=== PATIENT | female | born 1950 | race Asian ===

== ENCOUNTER → 2018-07-24 15:22 | Outpatient (CLI) | payer MEDICARE, SELFPAY ==
--- NOTE | 2018-07-24 15:26 | DI.MG.S_ITS ---
BILATERAL DIGITAL SCREENING MAMMOGRAM 3D/2D WITH CAD: 07/24/2018 CLINICAL: Routine screening. Comparison is made to exams dated: 05/02/2017 mammogram, 01/20/2015 mammogram, and 02/12/2013 mammogram - [facility]. The tissue of both breasts is heterogeneously dense. This may lower the sensitivity of mammography. Current study was also evaluated with a Computer Aided Detection (CAD) system. There is a biopsy clip in the left breast. No significant masses, calcifications, or other findings are seen in either breast. There has been no significant interval change. IMPRESSION: NEGATIVE There is no mammographic evidence of malignancy. A 1 year screening mammogram is recommended. This exam was interpreted at Station ID: [id number]. NOTE: For mammograms, a report in lay terms will be sent to the patient. Approximately 15% of breast malignancies will not be visualized mammographically. In the management of a palpable breast mass, a negative mammogram must not discourage biopsy of a clinically suspicious lesion. Electronically Signed By: Evelio stubbs/demetrio:07/25/2018 09:40:58 letter sent: Normal Exam ACR BI-RADS Category 1: Negative 3341F
== END ==
PROVIDERS: PCP Family Medicine; Visit Provider Family Medicine
DX: Z12.31 Encounter for screening mammogram for malignant neoplasm of breast (principal)
CPT/HCPCS: 77063; 77067

== ENCOUNTER → 2019-04-10 09:48 | Outpatient (CLI) | payer MEDICARE, SELFPAY | PROVIDERS: Visit Provider Internal Medicine | DX: M81.0 Age-related osteoporosis without current pathological fracture (principal); Z78.0 Asymptomatic menopausal state; Z82.62 Family history of osteoporosis | CPT/HCPCS: 77080 ==

== ENCOUNTER → 2019-09-18 14:07 | Outpatient (CLI) | payer MEDICARE, SELFPAY ==
--- NOTE | 2019-09-18 | DI.MG.S_ITS ---
BILATERAL DIGITAL SCREENING MAMMOGRAM 3D/2D WITH CAD: 09/18/2019 CLINICAL: Routine screening. Comparison is made to exams dated: 07/24/2018 mammogram, 05/02/2017 mammogram, and 01/20/2015 mammogram - [facility]. The tissue of both breasts is heterogeneously dense. This may lower the sensitivity of mammography. Current study was also evaluated with a Computer Aided Detection (CAD) system. There is a biopsy clip in the left breast. No significant masses, calcifications, or other findings are seen in either breast. There has been no significant interval change. IMPRESSION: NEGATIVE There is no mammographic evidence of malignancy. A 1 year screening mammogram is recommended. This exam was interpreted at Station ID: [id number]. NOTE: For mammograms, a report in lay terms will be sent to the patient. Approximately 15% of breast malignancies will not be visualized mammographically. In the management of a palpable breast mass, a negative mammogram must not discourage biopsy of a clinically suspicious lesion. Electronically Signed By: Yuliya carlos/demetrio:09/18/2019 14:54:47 letter sent: Normal Exam ACR BI-RADS Category 1: Negative 3341F
== END ==
PROVIDERS: PCP Internal Medicine; Visit Provider Internal Medicine
DX: Z12.31 Encounter for screening mammogram for malignant neoplasm of breast (principal)
CPT/HCPCS: 77063; 77067

== ENCOUNTER → 2020-01-21 08:11 | Outpatient (CLI) | payer MEDICARE, SELFPAY ==
--- NOTE | 2020-01-21 | DI.RAD.S_ITS ---
PROCEDURE: FL UPPER GI W AIR INDICATIONS: Dysphagia, unspecified COMPARISON: None. FINDINGS: KUB: Preprocedural automobile service advisor film demonstrates a normal bowel gas pattern. No suspicious abdominal calcifications. Visualized solid organ contours appear normal. Bony structures appear unremarkable. Esophagus: Esophageal mucosa is normal on air-contrast views. Slight esophageal dysmotility. There is delayed esophageal clearance. Stomach: The stomach is normally distensible, with normal rugal fold thickness. No mucosal masses or ulcers. Pylorus and duodenal bulb appear normal in morphology. Duodenal folds are normal in thickness as well. IMPRESSION: Mild esophageal dysmotility Dictated by: Holden Kingsley M.D. on 01/21/2020 at 11:50 Approved by: Holden Kingsley M.D. on 01/21/2020 at 11:52
== END ==
PROVIDERS: PCP Internal Medicine; Referring Provider Family Medicine; Visit Provider Family Medicine
DX: R13.10 Dysphagia, unspecified (principal); K22.4 Dyskinesia of esophagus
CPT/HCPCS: 74246

== ENCOUNTER 2020-03-28 04:51 | Emergency (ER) | payer MEDICARE, SELFPAY ==
--- NOTE | 2020-03-28 04:58 | ED.HEATRA ---
HPI - Head Injury General Chief complaint: Headache Stated complaint: Headache and vomiting woke her up Time Seen by Provider: 03/28/20 04:57 Source: patient Mode of arrival: Ambulatory Limitations: no limitations History of Present Illness HPI Narrative: 69-year-old female nonsmoker and otherwise healthy presents with family in the chief complaint of severe headache that started a few hours ago and woke her from sleep. Any motion and bright lights as well as loud noises make her symptoms worse. She has nausea and has been vomiting. She denies any chest pain or shortness of breath. She denies any abdominal pain. She has no numbness, tingling weakness. She denies fever chills and has had no recent trauma or injuries. She denies any history of hypertension. Daughter states that she checked blood pressure earlier and it was over 200, this is atypical for her. She denies any dietary or medication change nor any new supplements or other changes. She went to bed feeling largely okay but was a bit tired MD Complaint: head pain Onset (ago): hour(s) Related Data Home Medications Medication Instructions Recorded Confirmed CA PANTOTHENATE/FOLIC ACID/VIT 1 tab PO Q DAY #0 12/20/11 (MULTIVITAMIN) Calcium Carbonate/Vitamin D 1 cap PO Q DAY #0 12/20/11 (#CALCIUM) VITAMIN B COMPLEX 1 cap PO Q DAY #0 07/26/12 Previous Rx's Medication Instructions Recorded doxycycline hyclate 100 mg PO Q12H #20 cap 02/03/17 hydrocodone-acetaminophen 0 tab PO Q6HP PRN #15 tab 02/03/17 metronidazole [Flagyl] 500 mg PO Q6H 10 Days #0 tab 02/03/17 ondansetron [Zofran ODT] 4 mg SUBLINGUAL Q6HP PRN #20 odt 02/03/17 Allergies Allergy/AdvReac Type Severity Reaction Status Date / Time cephalexin [CEPHALEXIN] Allergy Intermediate hives Verified 03/28/20 05:50 gal Allergy Intermediate HIVES Verified 03/28/20 05:50 Sulfa (Sulfonamide Allergy Unknown Verified 03/28/20 05:50 Antibiotics) SHRIMP Allergy Intermediate HIVES Uncoded 03/28/20 05:50 Review of Systems Constitutional Constitutional: Denies chills, Denies fatigue, Denies fever(s), Denies frequent falls, Reports headache(s), Denies lethargy and Denies weakness Eyes Eyes: Denies change in vision, Denies eye discharge, Denies irritation and Denies loss of vision ENT Ears, Nose, Mouth, and Throat: Denies change in voice, Denies dizziness, Reports headache(s), Denies neck pain, Denies sore throat and Denies throat swelling Cardiovascular Cardiovascular: Denies chest pain, Denies irregular heart rhythm, Denies lightheadedness, Denies palpitations, Denies dyspnea, Denies dyspnea on exertion and Denies orthopnea Respiratory Respiratory: Denies cough, Denies dyspnea, Denies dyspnea on exertion and Denies wheezing Gastrointestinal Gastrointestinal: Denies abdominal pain, Denies change in bowel habits, Denies diarrhea, Reports nausea and Reports vomiting Genitourinary Genitourinary: Denies hematuria, Denies flank pain, Denies urinary incontinence and Denies urinary urgency Musculoskeletal Musculoskeletal: Denies back pain, Denies muscle weakness, Denies neck pain, Denies numbness and Denies tingling Integumentary/Breasts Skin/Breast: Denies pruritus, Denies erythema, Denies rash and Denies wounds Neurologic Neurologic: Denies behavioral changes, Denies confusion, Denies dizziness, Denies frequent falls, Reports headache(s), Denies loss of vision, Denies numbness, Denies tingling and Denies weakness Psychiatric Psychiatric: Denies anxiety, Denies behavioral changes, Denies confusion, Denies depression, Denies homicidal ideation and Denies suicidal ideation Endocrine Endocrine: Denies fatigue, Denies flushing and Denies palpitations Hematologic/Lymphatic Hematologic/Lymphatic: Denies easy bruising Allergic/Immunologic Allergic/Immunologic: Denies urticaria, Denies throat swelling and Denies wheezing Patient History Family History Brother Diabetes mellitus Heart disease Hypertension High cholesterol Brother Age: 64 Obese Diabetes mellitus Hypertension High cholesterol Mental health problem Child Age: 40 Obese Gout Child Age: 35 IBS (irritable bowel syndrome) Father Cancer Grandmother Diabetes mellitus Eczema Grandmother Osteoporosis Social History Smoking Status: Former smoker Exam Narrative Exam Narrative: GENERAL: [69] year old patient appears younger than stated age. Well-nourished, well-developed patient, in moderate distress, holding an emesis bag HEAD: Atraumatic. Normocephalic. EYES: Pupils equal round and reactive. Extraocular motions intact. No scleral icterus. No injection or drainage. ENT: Nose without bleeding, purulent drainage. Throat without erythema, tonsillar hypertrophy or exudate. Airway patent. NECK: Trachea midline. Non tender CARDIOVASCULAR: Regular rate and rhythm without murmurs, gallops, or rubs. RESPIRATORY: Clear to auscultation. Breath sounds equal bilaterally. No wheezes, rales, or rhonchi. GASTROINTESTINAL: Abdomen soft, non-tender, nondistended. EXTREMITIES: No edema or joint tenderness. BACK: Nontender without deformity or crepitance. No flank tenderness. NEURO: AOx3. SKIN: No rash or erythema of visible areas Initial Vital Signs Initial Vital Signs: Vital Signs Temperature 97.7 F 03/28/20 05:15 Pulse Rate 62 03/28/20 05:15 Respiratory Rate 18 03/28/20 05:15 Blood Pressure 227/107 H 03/28/20 05:15 Pulse Oximetry 100 03/28/20 05:15 Course Orders Ordered: ED Orders 03/28/20 05:05 CT head/brain wo con Stat EKG-12 Lead Stat 03/28/20 05:22 Complete Blood Count AUTO DIFF Stat Comprehensive Metabolic Panel Stat Lipase Stat Troponin & CK Cardiac Panel Stat Sodium Chloride (Normal Saline 0.9%) 1,000 mls @ 150 mls/hr IV CONT LEON Last Admin: 03/28/20 05:28 Dose: 150 mls/hr Documented by: JULIETTE Discontinued Medications Labetalol HCl (Trandate) 10 mg IV NOW ONE Stop: 03/28/20 05:10 Last Admin: 03/28/20 05:29 Dose: 10 mg Documented by: JULIETTE Ondansetron HCl (Zofran) 4 mg IV NOW ONE Stop: 03/28/20 05:06 Last Admin: 03/28/20 05:28 Dose: 4 mg Documented by: JULIETTE Reevaluation(s) Reevaluation #1: BP down to the 150s and patient asymptomatic. Call to Dr. Marti (external relations manager for [facility]) we share the opinion that is most appropriate for patient to follow up, possibly as soon later today with her PCP to developed an ongoing plan Vital Signs Vital signs: Vital Signs - 8 hr 03/28/20 05:15 03/28/20 05:49 03/28/20 05:53 Temperature 97.7 F Pulse Rate 62 60 69 Respiratory Rate 18 18 18 Blood Pressure 227/107 H Blood Pressure [Left Arm] 186/92 H 163/85 H Pulse Oximetry 100 99 99 03/28/20 06:21 Temperature Pulse Rate 64 Respiratory Rate 18 Blood Pressure Blood Pressure [Left Arm] 157/86 H Pulse Oximetry 99 MDM - Head Injury Lab Data Result diagrams: 03/28/20 05:22 03/28/20 05:22 Labs: Lab Results 03/28/20 03/28/20 Range/Units 05:22 05:22 WBC 5.5 (4.5-11.0) X10^3/uL RBC 4.32 (4.0-5.2) X10^6/uL Hgb 13.7 (12.0-16.0) g/dL Hct 39.8 (36-46) % MCV 92.1 (80-100) fL MCH 31.8 (26-34) PG MCHC 34.5 (30-36) % RDW 13.5 (11.6-14.8) % Plt Count 208 (150-400) X10^3/uL Neut % (Auto) 66.2 (50-75) % Lymph % (Auto) 24.2 L (25-40) % [place] % (Auto) 7.1 (3-14) % Eos % (Auto) 2.0 (2-4) % Baso % (Auto) 0.5 (0-2) % Neut # (Auto) 3600 (1786-9483) /uL Lymph # (Auto) 1300 (1025-8718) /uL [place] # (Auto) 400 (0-900) /uL Eos # (Auto) 100 (0-450) /uL Baso # (Auto) 0 (0-100) /uL Sodium 138 (137-145) mmol/L Potassium 3.4 (3.4-5.1) mmol/L Chloride 103 (98-107) mmol/L Carbon Dioxide 26 (22-32) mmol/L BUN 26 H (7-17) mg/dL Creatinine 0.54 (0.52-1.04) mg/dL Estimated GFR > 60.0 (>60) mL/min BUN/Creatinine Ratio 48.1 H (6-22) Glucose 131 H (80-110) mg/dL Calcium 9.8 (8.4-10.2) mg/dL Total Bilirubin 0.5 (0.2-1.3) mg/dL AST 38 H (14-36) IU/L ALT 36 H (<35) IU/L Alkaline Phosphatase 141 H (38-126) U/L Total Creatine Kinase 136 H (30-135) U/L CK-MB (CK-2) 3.14 H (<2.37) ng/mL CK-MB (CK-2) Rel Index 2.3 (1.5-5.0) % Troponin I < 0.012 (0.01-0.034) ng/mL Total Protein 8.1 (6.3-8.2) g/dL Albumin 4.9 (3.5-5.0) g/dL Globulin 3.2 (1.7-4.1) g/dL Albumin/Globulin Ratio 1.5 (1.0-2.8) Lipase 170 (23-300) U/L Discharge Plan Departure Patient Disposition: Home Clinical Impression: Hypertension Qualifiers: Hypertension type: essential hypertension Qualified Code(s): I10 - Essential (primary) hypertension Headache Qualifiers: Headache type: unspecified Headache chronicity pattern: acute headache Intractability: not intractable Qualified Code(s): R51 - Headache Instructions: Essential Hypertension, DI for Headache Activity Restrictions/Additional Instructions: *You have been diagnosed with [headache secondary to high blood pressure] *What to do: *Follow up with your primary care provider in 2-3 days, call for an appointment in a few hours when they open. Let them know you were seen in the Emergency Department and that we ask that you be seen in follow up *Return to ER if you should have any new, worsening or concerning symptoms, such as [ ] Prescriptions: No Action CA PANTOTHENATE/FOLIC ACID/VIT (MULTIVITAMIN) 1 tab PO Q DAY Qty: 0 RF: 0 Calcium Carbonate/Vitamin D (#CALCIUM) 1 cap PO Q DAY Qty: 0 RF: 0 VITAMIN B COMPLEX 1 cap PO Q DAY Qty: 0 RF: 0 doxycycline hyclate 100 MG capsule 100 mg PO Q12H Qty: 20 RF: 0 hydrocodone-acetaminophen 5 MG/325 MG tablet 0 tab PO Q6HP PRNQty: 15 RF: 0 metronidazole [Flagyl] 500 MG tablet 500 mg PO Q6H 10 Days Qty: 0 RF: 0 ondansetron [Zofran ODT] 4 MG tablet,disintegrating 4 mg Sublingual Q6HP PRNQty: 20 RF: 0 Referrals: Trudi Paulino ARNP [Primary Care Provider] -
--- NOTE | 2020-03-28 05:05 | DI.CT.S_ITS ---
PROCEDURE: CT HEAD/BRAIN WO CON INDICATIONS: worst headache of life, vomiting TECHNIQUE: Noncontrast 4.5 mm thick angled axial sections acquired from the foramen magnum to the vertex, with coronal and sagittal reformats. For radiation dose reduction, the following was used: automated exposure control, adjustment of mA and/or kV according to patient size. COMPARISON: None. FINDINGS: Image quality: Excellent. CSF spaces: Basal cisterns are patent. No extra-axial fluid collections. The ventricles are symmetric in size and shape. Brain: No intracranial bleeds or masses. There is cerebral volume loss for age, with resultant ventricular and sulcal prominence. There are periventricular and deep white matter chronic small vessel ischemic changes. There is intracranial internal carotid artery and vertebral artery atherosclerosis. Skull and face: Calvarium and visualized facial bones appear intact, without suspicious lesions. Sinuses: Visualized sinuses and mastoids are clear. IMPRESSION: No acute intracranial disease process. Dictated by: Shabnam Love MD, PhD on 03/28/2020 at 7:56 Approved by: Shabnam Love MD, PhD on 03/28/2020 at 7:59
[2020-03-28 05:15] VITALS: BP 227/107; PULSE 62; RESP 18; TEMP 36.5; O2SAT 100
[2020-03-28] MEDS: ONDANSETRON 4 MG/2 ML INJ IV (05:28)
[2020-03-28] MEDS: SODIUM CHLORIDE 0.9% 1,000 ML 150 ML IV (05:28)
[2020-03-28] MEDS: LABETALOL 20 MG/4 ML SYRINGE 10 MG IV (05:29)
[2020-03-28 05:33] LABS: Add Manual Diff / Slide Review NO; Basophils Absolute Auto 0 /uL (0-100); Basophils Percent Auto 0.5 % (0-2); Eosinophils Absolute Auto 100 /uL (0-450); Hematocrit 39.8 % (36-46); Hemoglobin 13.7 g/dL (12.0-16.0); Lymphocytes Absolute Auto 1300 /uL (1100-4500); Lymphocytes Percent Auto 24.2 % (25-40); Mean Corpuscular HGB Conc 34.5 % (30-36); Mean Corpuscular Hemoglobin 31.8 PG (26-34); Mean Corpuscular Volume 92.1 fL (80-100); Monocytes Absolute Auto 400 /uL (0-900); Monocytes Percent Auto 7.1 % (3-14); Neutrophils Absolute Auto 3600 /uL (1500-7000); Neutrophils Percent Auto 66.2 % (50-75); Platelet Count 208 X10^3/uL (150-400); Red Blood Cell Count 4.32 X10^6/uL (4.0-5.2); Red Cell Distribution Width 13.5 % (11.6-14.8); White Blood Cell Count 5.5 X10^3/uL (4.5-11.0)
[2020-03-28 05:38] LABS: Alanine Aminotransferase 36 IU/L (<35); Albumin 4.9 g/dL (3.5-5.0); Albumin Globulin Ratio 1.5 (1.0-2.8); Alkaline Phosphatase 141 U/L (38-126); Aspartate Aminotransferase 38 IU/L (14-36); BUN Creatinine Ratio 48.1 (6-22); Bilirubin Total 0.5 mg/dL (0.2-1.3); Blood Urea Nitrogen 26 mg/dL (7-17); Calcium 9.8 mg/dL (8.4-10.2); Carbon Dioxide 26 mmol/L (22-32); Chloride 103 mmol/L (98-107); Creatine Kinase 136 U/L (30-135); Estimated Glomerular Filt Rate > 60.0 mL/min (>60); Globulin 3.2 g/dL (1.7-4.1); Glucose 131 mg/dL (80-110); Lipase 170 U/L (23-300); Potassium 3.4 mmol/L (3.4-5.1); Sodium 138 mmol/L (137-145); Total Protein 8.1 g/dL (6.3-8.2)
[2020-03-28 05:49] VITALS: BP 186/92; PULSE 60; RESP 18; O2SAT 99
[2020-03-28 05:49] LABS: Troponin I < 0.012 ng/mL (0.01-0.034)
[2020-03-28 05:53] VITALS: BP 163/85; PULSE 69; RESP 18; O2SAT 99
[2020-03-28 05:53] LABS: CKMB % Relative Index 2.3 % (1.5-5.0); Creatine Kinase MB 3.14 ng/mL (<2.37)
[2020-03-28 06:08] LABS: HEMOLYSIS 24 (0-50)
[2020-03-28 06:21] VITALS: BP 157/86; PULSE 64; RESP 18; O2SAT 99
[2020-03-28 06:51] VITALS: BP 157/86; PULSE 60; RESP 20; O2SAT 97
--- NOTE | 2020-03-28 07:02 | PC.NURSE ---
Her h/a was gone and she was given teaching on high blood pressure,home with her daughter who is also an RN.
== END 2020-03-28 07:06 | disposition home or self-care (01) ==
PROVIDERS: Emergency Provider Emergency Medicine; PCP Internal Medicine
DX: I10 Essential (primary) hypertension (principal); R51 Headache; R11.2 Nausea with vomiting, unspecified
CPT/HCPCS: 36415; 70450; 80053; 82550; 82553; 83690; 84484; 85025; 93005; 96361; 96374; 96375; 99284; J2405

== ENCOUNTER → 2020-04-04 12:09 | Outpatient (CLI) | payer MEDICARE, SELFPAY ==
--- NOTE | 2020-04-04 | DI.US.S_ITS ---
PROCEDURE: US CAROTID DOPPLER BI INDICATIONS: TIA TECHNIQUE: Color and pulse Doppler interrogation was performed of both carotid systems, with image documentation and velocity measurements. COMPARISON: None. FINDINGS: Stenosis calculations are based on SRU (Society of Radiologists in Ultrasound) criteria. Right side: Brachial blood pressure: 180/86 mm Hg. Common carotid artery peak systolic velocity: 53 cm/sec. Internal carotid artery peak systolic velocity: 55 cm/sec. Internal carotid artery end diastolic velocity: 20 cm/sec. External carotid artery peak systolic velocity: 40 cm/sec. ICA/CCA peak systolic ratio: 1.0. Jackman scale imaging description: Minimal plaque at the bifurcation. Percent internal carotid artery stenosis: Less than 50%. Vertebral artery: Flow direction is antegrade. Left side: Brachial blood pressure: 179/86 mm Hg. Common carotid artery peak systolic velocity: 79 cm/sec. Internal carotid artery peak systolic velocity: 52 cm/sec. Internal carotid artery end diastolic velocity: 15 cm/sec. External carotid artery peak systolic velocity: 44 cm/sec. ICA/CCA peak systolic ratio: 0.6. Jackman scale imaging description: Minimal plaque at the bifurcation. Percent internal carotid artery stenosis: Less than 50%. Vertebral artery: Flow direction is antegrade. IMPRESSION: Less than 50% stenosis of the internal carotid arteries bilaterally. Dictated by: Maribell Rader M.D. on 04/04/2020 at 15:18 Approved by: Maribell Rader M.D. on 04/04/2020 at 15:20
== END ==
PROVIDERS: PCP Internal Medicine; Referring Provider Internal Medicine; Visit Provider Internal Medicine
DX: I65.23 Occlusion and stenosis of bilateral carotid arteries (principal)
CPT/HCPCS: 93880

== ENCOUNTER → 2020-09-22 16:06 | Outpatient (CLI) | payer MEDICARE, SELFPAY ==
--- NOTE | 2020-09-22 | DI.MG.S_ITS ---
BILATERAL DIGITAL SCREENING MAMMOGRAM 3D/2D WITH CAD: 09/22/2020 CLINICAL: Routine screening. Comparison is made to exams dated: 09/18/2019 mammogram, 07/24/2018 mammogram, and 05/02/2017 mammogram - [facility]. The tissue of both breasts is heterogeneously dense. This may lower the sensitivity of mammography. Current study was also evaluated with a Computer Aided Detection (CAD) system. There is a biopsy clip in the left breast. No significant masses, calcifications, or other findings are seen in either breast. There has been no significant interval change. IMPRESSION: NEGATIVE There is no mammographic evidence of malignancy. A 1 year screening mammogram is recommended. This exam was interpreted at Station ID: [id number]. NOTE: For mammograms, a report in lay terms will be sent to the patient. Approximately 15% of breast malignancies will not be visualized mammographically. In the management of a palpable breast mass, a negative mammogram must not discourage biopsy of a clinically suspicious lesion. Electronically Signed By: Rachelle bush/demetrio:09/22/2020 16:52:36 letter sent: Normal Exam ACR BI-RADS Category 1: Negative 3341F
== END ==
PROVIDERS: PCP Internal Medicine; Referring Provider Internal Medicine; Visit Provider Internal Medicine
DX: Z12.31 Encounter for screening mammogram for malignant neoplasm of breast (principal)
CPT/HCPCS: 77063; 77067

== ENCOUNTER → 2021-07-08 13:16 | Outpatient (CLI) | payer MEDICARE, SELFPAY ==
[2021-07-08 15:01] LABS: COVID19 -Nasal RAPID Negative (Negative)
== END ==
PROVIDERS: PCP Internal Medicine; Visit Provider Student in an Organized Health Care Education/Training Program
DX: Z20.822 Contact with and (suspected) exposure to COVID-19 (principal)
CPT/HCPCS: 87635

== ENCOUNTER → 2021-09-23 16:20 | Outpatient (CLI) | payer MEDICARE, SELFPAY ==
--- NOTE | 2021-09-23 | DI.MG.S_ITS ---
BILATERAL DIGITAL SCREENING MAMMOGRAM 3D/2D WITH CAD: 09/23/2021 CLINICAL: Routine screening. Comparison is made to exams dated: 09/22/2020 mammogram, 09/18/2019 mammogram, 07/24/2018 mammogram, 05/02/2017 mammogram, and 01/20/2015 mammogram - [facility]. The tissue of both breasts is heterogeneously dense. This may lower the sensitivity of mammography. Current study was also evaluated with a Computer Aided Detection (CAD) system. There is a biopsy clip in the left breast. Right breast scar marker. No significant masses, calcifications, or other findings are seen in either breast. There has been no significant interval change. IMPRESSION: NEGATIVE There is no mammographic evidence of malignancy. A 1 year screening mammogram is recommended. This exam was interpreted at Station ID: [id number]. NOTE: For mammograms, a report in lay terms will be sent to the patient. Approximately 15% of breast malignancies will not be visualized mammographically. In the management of a palpable breast mass, a negative mammogram must not discourage biopsy of a clinically suspicious lesion. Electronically Signed By: Alli Milian M.D. slc/:09/23/2021 16:53:44 letter sent: Normal Exam ACR BI-RADS Category 1: Negative 3341F
== END ==
PROVIDERS: PCP Internal Medicine; Referring Provider Internal Medicine; Visit Provider Internal Medicine
DX: Z12.31 Encounter for screening mammogram for malignant neoplasm of breast (principal)
CPT/HCPCS: 77063; 77067

== ENCOUNTER → 2022-09-24 08:15 | Outpatient (CLI) | payer MEDICARE, OTHER, SELFPAY ==
--- NOTE | 2022-09-24 | DI.MG.S_ITS ---
BILATERAL DIGITAL SCREENING MAMMOGRAM 3D/2D WITH CAD: 09/24/2022 CLINICAL: Routine screening. Comparison is made to exams dated: 09/23/2021 mammogram, 09/22/2020 mammogram, and 09/18/2019 mammogram - [facility]. Both breasts are heterogeneously dense, which may obscure small masses (category c / 51-75% glandular tissue). Current study was also evaluated with a Computer Aided Detection (CAD) system. There is a benign calcification in the left breast. There also are benign post operative findings in the right breast. Additionally, there is a biopsy clip in the left breast. No significant masses, calcifications, or other findings are seen in either breast. There has been no significant interval change. IMPRESSION: BENIGN There is no mammographic evidence of malignancy. A 1 year screening mammogram is recommended. Based on the Tyrer Cuzick model (a risk assessment model) the patient's lifetime risk is 6.5% and her 10 year risk is 4.9%. According to the ACR, ACS, and NCCN guidelines, an annual breast MRI exam along with mammogram is recommended if the patient's lifetime risk is 20% or greater. This exam was interpreted at Station ID: [id number]. NOTE: For mammograms, a report in lay terms will be sent to the patient. Approximately 15% of breast malignancies will not be visualized mammographically. In the management of a palpable breast mass, a negative mammogram must not discourage biopsy of a clinically suspicious lesion. Electronically Signed By: Yuliya carlos/demetrio:09/24/2022 08:58:50 letter sent: Normal Exam ACR BI-RADS Category 2: Benign Finding(s) 3342F
== END ==
PROVIDERS: PCP Internal Medicine; Referring Provider Internal Medicine; Visit Provider Internal Medicine
DX: Z12.31 Encounter for screening mammogram for malignant neoplasm of breast (principal)
CPT/HCPCS: 77063; 77067

== ENCOUNTER → 2022-11-09 09:13 | Outpatient (CLI) | payer MEDICARE, OTHER, SELFPAY ==
[2022-11-09 11:25] LABS: COVID19 -Nasal RAPID Negative (Negative)
== END ==
PROVIDERS: PCP Internal Medicine; Visit Provider Surgery
DX: Z01.812 Encounter for preprocedural laboratory examination (principal); Z20.822 Contact with and (suspected) exposure to COVID-19
CPT/HCPCS: 87635; C9803

== ENCOUNTER 2022-11-10 07:26 | Day surgery (SDC) | payer MEDICARE, OTHER, SELFPAY ==
[2022-11-10 07:57] VITALS: BMI 20.2
[2022-11-10 08:08] VITALS: BP 130/85; PULSE 89; RESP 20; TEMP 36.1; O2SAT 100
--- NOTE | 2022-11-10 08:32 | PM.HP.1 ---
History of Present Illness History of Present Illness [place] [facility] [facility] [place] History Family & Social History Family History Brother Diabetes mellitus Heart disease Hypertension High cholesterol Brother Age: 67 Obese Diabetes mellitus Hypertension High cholesterol Mental health problem Child Age: 43 Obese Gout Child Age: 38 IBS (irritable bowel syndrome) Father Cancer Grandmother Diabetes mellitus Eczema Grandmother Osteoporosis Social History: household members spouse Tobacco & Substance use: Smoking Status Former smoker alcohol intake frequency holiday/special occasion Substance Use Type does not use Meds Home Medications and Allergies Home Medications Medication Instructions Recorded Confirmed Type CA PANTOTHENATE/FOLIC ACID/VIT 1 tab PO Q DAY ##0 12/20/11 11/10/22 History (MULTIVITAMIN) Calcium Carbonate/Vitamin D 1 cap PO Q DAY ##0 12/20/11 11/10/22 History (#CALCIUM) VITAMIN B COMPLEX 1 cap PO Q DAY ##0 07/26/12 11/10/22 History lisinopril 40 mg tablet 40 mg PO DAILY 11/10/22 11/10/22 History Allergies Allergy/AdvReac Type Severity Reaction Status Date / Time cephalexin [CEPHALEXIN] Allergy Intermediate hives Verified 11/10/22 07:57 gal Allergy Intermediate HIVES Verified 11/10/22 07:57 Sulfa (Sulfonamide Allergy Unknown Verified 11/10/22 07:57 Antibiotics) SHRIMP Allergy Intermediate HIVES Uncoded 03/28/20 05:50 Review of Systems Review of Systems Narrative: Negative Exam Vital Signs (past 8 hours): - 11/10/22 08:08 Temperature 97.0 F L Pulse Rate 89 Respiratory Rate 20 Blood Pressure 130/85 Pulse Oximetry 100 Oxygen Delivery Method Room Air Oxygen Delivery Method Room Air Narrative Exam Narrative: Awake alert and oriented x3, pupils equal round reactive to light, oropharynx clear, heart regular rate and rhythm, lungs clear to auscultation bilaterally, abdomen nontender and nondistended, extremities without edema, no gross neurologic deficits noted Assessment & Plan Assessment & Plan narrative: Colonoscopy for colon cancer screening Time Spent With Patient Critical Care time: I spent a total of [] minutes of critical care time on this patient's care today; this time is exclusive of procedural time.
[2022-11-10 09:10] VITALS: BP 91/56; PULSE 56; RESP 10; TEMP 36.7; O2SAT 98
--- NOTE | 2022-11-10 09:10 | PM.OP.COLON ---
Operative Date/Time/Diagnoses Date of procedure: 11/10/22 Procedure & Clinicians Study performed: Diagnostic colonoscopy Indications: Colon cancer screening. Last colonoscopy was about 5 years ago. Family history of colon cancer in first-degree relative (father) diagnosed age <60 Procedure Notes Procedure in detail: Prior to the procedure, history and physical was performed, and patient medications and allergies were reviewed. Preprocedure nursing history and assessment was reviewed. Patient identification and proposed procedure were verified by the physician and nurse in the procedure room. The physical status of the patient was reassessed after the procedure. After informed consent was obtained including risks, benefits, and alternatives, the scope was passed under direct vision. Throughout the procedure, the patient's blood pressure, pulse, and oxygen saturations were monitored continuously. The pediatric colonoscope was introduced through the anus and advanced to the cecum as identified by the appendiceal orifice and ileocecal valve. The patient tolerated the procedure well. Bowel prep was deemed adequate to detect polyps greater than 5 mm. LITTLE and perianal examinations were unremarkable. Retroflexion in the rectum was unrevealing. The entire examined colon was unremarkable. Impression: Normal colonoscopy No specimens taken Complications: other (No complications. 0 EBL) Post-procedure Plan for aftercare: Repeat colonoscopy for screening purposes in 5 years Resume home medications Resume previous diet Patient has a contact number available for emergencies. The signs and symptoms of potential delayed complications were discussed with the patient. Return to normal activities tomorrow. Written discharge instructions were provided to the patient. Discharge home with escort
[2022-11-10] MEDS: LACTATED RINGERS 1,000 ML 84 ML IV (09:14)
[2022-11-10 09:15] VITALS: BP 86/53; PULSE 58; RESP 14; O2SAT 100
[2022-11-10 09:20] VITALS: BP 114/64; PULSE 60; RESP 19; O2SAT 100
[2022-11-10 09:25] VITALS: BP 145/78; PULSE 64; RESP 12; TEMP 36.3; O2SAT 98
[2022-11-10 09:35] VITALS: BP 124/77; PULSE 62; RESP 14; TEMP 36.4; O2SAT 99
== END 2022-11-10 09:51 | disposition home or self-care (01) ==
PROVIDERS: PCP Internal Medicine; Referring Provider Internal Medicine; Visit Provider Internal Medicine
PROC: 0DJD8ZZ Inspection of Lower Intestinal Tract, Via Natural or Artificial Opening Endoscopic (ICD-10-PCS; CPT 45378; principal; 2022-11-10 08:30)
DX: Z12.11 Encounter for screening for malignant neoplasm of colon (principal); Z80.0 Family history of malignant neoplasm of digestive organs
CPT/HCPCS: G0105; 36415; J2704

== ENCOUNTER → 2023-09-26 11:28 | Outpatient (CLI) | payer MEDICARE, OTHER, SELFPAY ==
--- NOTE | 2023-09-26 | DI.MG.S_ITS ---
BILATERAL DIGITAL SCREENING MAMMOGRAM 3D/2D WITH CAD: 09/26/2023 CLINICAL: Routine screening. Comparison is made to exams dated: 09/24/2022 mammogram, 09/23/2021 mammogram, 09/22/2020 mammogram, and 09/18/2019 mammogram - [facility]. Both breasts are heterogeneously dense, which may obscure small masses (category c / 51-75% glandular tissue). Current study was also evaluated with a Computer Aided Detection (CAD) system. There is a benign calcification in the left breast. There also are benign post operative findings in the right breast. Additionally, there is a biopsy clip in the left breast. No significant masses, calcifications, or other findings are seen in either breast. There has been no significant interval change. IMPRESSION: BENIGN There is no mammographic evidence of malignancy. A 1 year screening mammogram is recommended. Based on the Tyrer Cuzick model (a risk assessment model) the patient's lifetime risk is 6.1% and her 10 year risk is 5.0%. According to the ACR, ACS, and NCCN guidelines, an annual breast MRI exam along with mammogram is recommended if the patient's lifetime risk is 20% or greater. This exam was interpreted at Station ID: [id number]. NOTE: For mammograms, a report in lay terms will be sent to the patient. Approximately 15% of breast malignancies will not be visualized mammographically. In the management of a palpable breast mass, a negative mammogram must not discourage biopsy of a clinically suspicious lesion. Electronically Signed By: Alli valdez/demetrio:09/26/2023 13:25:48 letter sent: Normal Exam ACR BI-RADS Category 2: Benign Finding(s) [id number]
== END ==
PROVIDERS: PCP Internal Medicine; Referring Provider Internal Medicine; Visit Provider Internal Medicine
DX: Z12.31 Encounter for screening mammogram for malignant neoplasm of breast (principal)
CPT/HCPCS: 77063; 77067

== ENCOUNTER → 2024-09-28 09:25 | Outpatient (CLI) | payer MEDICARE, OTHER, SELFPAY ==
--- NOTE | 2024-09-28 | DI.MG.S_ITS ---
BILATERAL DIGITAL SCREENING MAMMOGRAM 3D/2D WITH CAD: 09/28/2024 CLINICAL: Routine screening. Comparison is made to exams dated: 09/26/2023 mammogram, 09/24/2022 mammogram, and 09/23/2021 mammogram - [facility]. The breasts are heterogeneously dense, which may obscure small masses (category c / 51-75% glandular tissue). Current study was also evaluated with a Computer Aided Detection (CAD) system. There is a benign calcification in the left breast. There also are benign post operative findings in the right breast. Additionally, there is a biopsy clip in the left breast. No significant masses, calcifications, or other findings are seen in either breast. There has been no significant interval change. IMPRESSION: BENIGN There is no mammographic evidence of malignancy. A 1 year screening mammogram is recommended. Based on the Tyrer Cuzick model (a risk assessment model) the patient's lifetime risk is 5.7% and her 10 year risk is 5.1%. According to the ACR, ACS, and NCCN guidelines, an annual breast MRI exam along with mammogram is recommended if the patient's lifetime risk is 20% or greater. This exam was interpreted at Station ID: [id number]. NOTE: For mammograms, a report in lay terms will be sent to the patient. Approximately 15% of breast malignancies will not be visualized mammographically. In the management of a palpable breast mass, a negative mammogram must not discourage biopsy of a clinically suspicious lesion. Electronically Signed By: Deacon [email or web address]:10/01/2024 07:41:28 letter sent: Normal Exam ACR BI-RADS Category 2: Benign
== END ==
PROVIDERS: PCP Internal Medicine; Referring Provider Internal Medicine; Visit Provider Internal Medicine
DX: Z12.31 Encounter for screening mammogram for malignant neoplasm of breast (principal); R92.333 Mammographic heterogeneous density, bilateral breasts
CPT/HCPCS: 77063; 77067

== ENCOUNTER → 2025-09-30 08:47 | Outpatient (CLI) | payer MEDICARE, OTHER, SELFPAY ==
--- NOTE | 2025-09-30 08:48 | DI.MG.S_ITS ---
MM screening mammo BI: 09/30/2025. BI-RADS: 2 CLINICAL: 75-year old female for bilateral screening mammogram. Tyrer-Cuzick lifetime risk of 2.9%. No personal or first-degree family history of breast cancer. The patient had a prior right breast biopsy. PRIOR EXAMS: 09/28/2024, 09/26/2023, 09/24/2022, 09/23/2021, 09/22/2020, 09/18/2019, 07/24/2018, 05/02/2017. MAMMOGRAPHY TECHNIQUE: 2D and 3D (tomosynthesis) digital mammographic views obtained, with additional images as needed for full coverage. Current study was also evaluated with a Computer Aided Detection (CAD) system. DENSITY C. The breasts are heterogeneously dense, which may obscure small masses. MAMMOGRAPHY FINDINGS Right: Benign-appearing post-surgical changes noted on the right. There are no suspicious masses, calcifications, or other findings in the breast. Left: Biopsy marker present on the left. There are no suspicious masses, calcifications, or other findings in the breast. IMPRESSION: * No evidence of malignancy with benign findings. RECOMMENDATIONS Bilateral * Annual screening mammography. OVERALL ASSESSMENT CATEGORY BI-RADS-2: Benign. The [employer] recommends annual screening mammography beginning at age 40 for women with average risk of breast cancer. ELECTRONICALLY SIGNED: Radha Macario M.D. on 09/30/2025 at 03:10:45 PM PT Interpreting Station ID: [id number]
== END ==
PROVIDERS: PCP Family Medicine; Referring Provider Family Medicine; Visit Provider Family Medicine
DX: Z12.31 Encounter for screening mammogram for malignant neoplasm of breast (principal); R92.333 Mammographic heterogeneous density, bilateral breasts
CPT/HCPCS: 77063; 77067